=== PATIENT | male | born 1955 | race African-American/Black ===

== ENCOUNTER 2016-09-08 05:28 | Inpatient (IN) | payer OTHER ==
[~2016-09-08] VITALS: Ht 170.2 cm; Wt 68.0 kg
[~2016-09-08 05:28] MED LIST: Bisacodyl RC; Butalb/Acetaminophen/Caffeine PO; CLON0.1T14 PO; DOCU-270 PO; Docusate Sodium PO; FERR325T28 PO; HYDR-3326 PO; LEVO500T15 PO; PANT40TA2 PO; RIFA300C2 PO; RIVA10TA PO
[2016-09-08] MEDS ORDERED: KETOROLAC TROMETHAMINE INJ 30 MG/ML VIAL ONE (06:34)
[2016-09-08] MEDS ORDERED: BUPIVACAINE MPF 0.5% W/EPI INJ 30 ML VIAL ONE (06:34)
[2016-09-08] MEDS ORDERED: BACITRACIN 50000 UNITS/VIAL ONE (06:34)
[2016-09-08] MEDS ORDERED: TRANEXAMIC ACID 3,000 MG in SODIUM CHLORIDE IRRIG SOLUTION 70 ML IR ONE (07:00)
[2016-09-08] MEDS ORDERED: CEFAZOLIN SODIUM/DEXTROSE,ISO 50 ML IV ONE (07:44)
[2016-09-08] MEDS ORDERED: IV LR 1000 ML 1,000 ML ONE (07:45)
[2016-09-08] MEDS ORDERED: SECONDARY IV SET 1 EA INFUS.SET MC ONE ×2 (07:45→17:01)
[2016-09-08] MEDS ORDERED: IV SET PRIMARY 1 EA INFUS.SET MC ONE (07:45)
[2016-09-08] MEDS ORDERED: NEEDLELESS EST SET LARGE BORE 1 EA INFUS.SET MC ONE (07:45)
[2016-09-08] MEDS ORDERED: MORPHINE SULFATE/PF 10 MG/10ML (1MG/ML) AMPUL ONE (08:36)
[2016-09-08] MEDS ORDERED: MIDAZOLAM HCL 2 MG/2ML VIAL ONE ×2 (09:00)
[2016-09-08 10:50] VITALS: BP 113/70
--- NOTE | 2016-09-08 10:50 | NUR ---
HEAT SEALING MACHINE OPERATOR OPENING RECEIVED PATIENT FROM RECOVERY ROOM. S/P RIGHT TOTAL KNEE. PATIENT VS STABLE, NO SOB, DIFFICULTY BREATHING OR PAIN AT THIS TIME. PATIENT NO SENSATION OR MOVEMENT BILATERAL KNEE AND BELOW. SOME SENSATION BILATERALLY LOWER EXTREMITY ABOVE KNEES. PATIENT STATES NO NEEDS AT THIS TIME AND LEFT WITH CALL LIGHT IN REACH, BED LOWERED AND LOCKED, RAILS UPX3 FOR SAFETY WITH BED ALARM ON. CONTINUOUS PULSE O2 ORDERED FOR NOW VS MACHINE ATTACHED TO PATIENT. SALBADOR ORTA ATTACHING TELE MONITORING
--- NOTE | 2016-09-08 10:55 | NUR ---
HARVEST CREW SUPERVISOR NOTES WARM BLANKETS ON PATIENT, HEATED BAGS UNDER ARMS AND GROIN, ROOM WARMED. WILL MONITOR PATIENT. TELE SINUS JENNIFER
[2016-09-08 11:00] VITALS: BP_SYST 112; BP_SYST 113; BP_DIAS 62; BP_DIAS 70
--- NOTE | 2016-09-08 11:05 | NUR ---
CLOTH PRINTING INSPECTOR NOTES PATIENT DENIES CHILLS. IS COOL TO TOUCH. NO DIAPHORESIS. NO COMPLAINTS. MD AWARE OF ADMISSION AND OF LOW TEMP.
[2016-09-08 11:15] VITALS: BP 113/72
[2016-09-08 11:30] VITALS: BP 110/68
[2016-09-08] MEDS ORDERED: HYDROMORPHONE 1 MG/1 ML DISP.SYRIN IV PRN (11:30)
[2016-09-08] MEDS ORDERED: TYLENOL 650 MG TABLET PO PRN (11:30)
[2016-09-08] MEDS ORDERED: SENOKOT 8.6 MG TABLET PO PRN (11:30)
[2016-09-08] MEDS ORDERED: COLACE 250 MG CAPSULE PO PRN (11:30)
[2016-09-08] MEDS ORDERED: AMBIEN 5 MG TABLET PO PRN (11:30)
[2016-09-08] MEDS ORDERED: DULCOLAX 10 MG/SUPP.RECT RC PRN (11:30)
[2016-09-08] MEDS ORDERED: HYDROCODONE/APAP 5/325MG 1 EACH TABLET PO PRN ×3 (11:30→15:30)
[2016-09-08] MEDS ORDERED: IV SET PRIMARY PUMP SET 1 EA INFUS.SET MC ONE (11:58)
[2016-09-08] MEDS: IV LR 1000 ML 1,000 ML IV PRN ×2 (12:07→17:12)
[2016-09-08] MEDS ORDERED: MAG HYDROX/AL HYDROX/SIMETH 30 ML UDC PO PRN ×2 (15:30→16:00)
[2016-09-08] MEDS ORDERED: Z GUARD REMEDY 2 OZ OINT TP PRN (15:30)
[2016-09-08] MEDS ORDERED: MAGNESIUM HYDROXIDE 30 ML UDC PO PRN (15:30)
[2016-09-08] MEDS ORDERED: ZOLPIDEM TARTRATE 5 MG TABLET PO PRN (15:30)
[2016-09-08] MEDS ORDERED: ACETAMINOPHEN 325 MG TABLET PO PRN (15:30)
[2016-09-08] MEDS ORDERED: ONDANSETRON HCL/PF 4 MG/2 ML VIAL IVP PRN (15:30)
[2016-09-08 16:00] VITALS: BP 102/69
[2016-09-08] MEDS ORDERED: ONDANSETRON HCL/PF 4 MG/2 ML VIAL IV PRN (16:00)
[2016-09-08] MEDS ORDERED: ZOLPIDEM TARTRATE 10 MG TABLET PO PRN (16:00)
[2016-09-08] MEDS ORDERED: NA PHOS,M-B/NA PHOS,DI-BA 1 EA ENEMA RC PRN (16:00)
[2016-09-08] MEDS ORDERED: MAGNESIUM CITRATE 296 ML BOTTLE PO PRN (16:00)
[2016-09-08] MEDS ORDERED: diphenhydrAMINE HCL 25 MG CAPSULE PO PRN (16:00)
[2016-09-08] MEDS ORDERED: CLONIDINE HCL 0.1 MG TABLET PO PRN (16:00)
[2016-09-08] MEDS ORDERED: BUTALB/APAP/CAFFEINE 1 EACH TABLET PO PRN (16:00)
[2016-09-08] MEDS: ANCEF 1 G in IV D5W 50 ML IV SCH (17:07)
[2016-09-08] MEDS: FERROUS SULFATE (325 MG) 325 MG/TAB TABLET PO SCH (17:07)
[2016-09-08] MEDS: DOCUSATE SODIUM 100 MG CAPSULE PO SCH (17:07)
[2016-09-08] MEDS ORDERED: HYDROCODONE/APAP 5/325MG 1 EACH TABLET PO SCH (17:30)
--- NOTE | 2016-09-08 18:56 | NUR ---
EDITOR PRODUCER CLOSING PATIENT STABLE NO PAIN, SOB, DIFFICULTY BREATHING. BRACE ON RIGHT LEG AND PULSES PRESENT ALL EXTREMITIES. PATIENT STATES NO NEEDS AT THIS TIME. FULL SENSATION AND MOVEMENT HAS RETURNED TO LOWER EXTREMITIES. PATIENT BED LOWERED AND LOCKED RAILS UPX3 FOR SAFETY AND WILL ENDORSE TO RN FOR ELIAS
--- NOTE | 2016-09-08 19:30 | NUR ---
NIGHT SHIFT NOTES ALERT AND ORIENTED, VERBALLY RESPONSIVE TO STIMULI. DENIES ANY PAIN WHEN ASKED. ON OXYGEN AT 2LPM VIA NC. NO SOB NOTED. LEFT WRIST IV ACCESS NOTED, INTACT AND PATENT WITH IVF INFUSING WELL AT 100CC/HR. NO S/S OF FLUID OVERLOAD. WITH HOPPER CATHETER, DWELLING WELL. RIGHT KNEE IMMOBILIZER NOTED. CLEAN AND DRY. WILL CONTINUE TO MONITOR.
[2016-09-08 20:00] VITALS: BP 93/53
[2016-09-08] MEDS: DRONABINOL (2.5 MG) 2.5 MG CAPSULE PO SCH (22:00)
[2016-09-08] MEDS: PANTOPRAZOLE 40 MG TABLET.DR PO SCH (22:00)
[2016-09-09] VITALS: BP 118/72
[2016-09-09] MEDS: ANCEF 1 G in IV D5W 50 ML IV SCH (00:30)
--- NOTE | 2016-09-09 06:23 | NUR ---
RN NOTES NO SIGNIFICANT CHANGES NOTED. NO SOB. ON ROOM AIR. DENIES ANY PAIN WHEN ASKED. RIGHT KNEE IMMOBILIZER IN PLACED. CLEAN AND DRY. WILL ENDORSE TO THE NEXT SHIFT.
[2016-09-09] MEDS: IV LR 1000 ML 1,000 ML IV PRN ×2 (06:31→21:11)
[2016-09-09 06:40] LABS: EOSINOPHILS % (AUTO) 0.1 % (0.0-6.0); HEMATOCRIT 31 % (39-51); HEMOGLOBIN 10.4 g/dL (13.5-17.5); LYMPHOCYTES # (AUTO) 0.5 /CMM (0.8-4.8); LYMPHOCYTES % (AUTO) 6.1 % (20.0-44.0); MEAN CORPUSCULAR HEMOGLOBIN 28 PG (26.0-33.0); MEAN CORPUSCULAR HGB CONC 33 g/dl (31.0-36.0); MEAN CORPUSCULAR VOLUME 85 fL (80-96); MONOCYTES # (AUTO) 0.9 /CMM (0.1-1.30); MONOCYTES % (AUTO) 10.5 % (2.0-12.0); NEUTROPHILS # (AUTO) 7.5 /CMM (1.8-8.9); NEUTROPHILS % (AUTO) 83.3 % (43.0-81.0); PLATELET COUNT (AUTO) 322 /CMM (150-450); RDW COEFFICIENT OF VARIATION 16.9 (11.5-15.0)
[2016-09-09 06:56] LABS: CALCIUM, SERUM 8.7 mg/dL (8.5-10.1); CREATININE 1.2 mg/dL (0.6-1.3); MAGNESIUM 1.5 mg/dL (1.8-2.4); PHOSPHORUS 3.4 mg/dL (2.5-4.9); POTASSIUM 4.3 mmol/L (3.5-5.1)
[2016-09-09 07:30] VITALS: BP 107/67
[2016-09-09 08:00] VITALS: BP 101/66
--- NOTE | 2016-09-09 08:00 | NUR ---
RN NOTES ALERT & ORIENTED X3; R KNEE DRSG CDI; R KNEE IMMOBILIZER IN PLACE; POSTIVE CMS TO RLE; SCDS TO BLE; STATES NO PAIN AT THIS TIME; WILL CONTINUE TO MONITOR.
[2016-09-09] MEDS: ASPIRIN 325 MG TABLET PO SCH (08:44)
[2016-09-09] MEDS: DOCUSATE SODIUM 100 MG CAPSULE PO SCH ×2 (08:44→16:21)
[2016-09-09] MEDS: FERROUS SULFATE (325 MG) 325 MG/TAB TABLET PO SCH ×2 (08:44→16:21)
[2016-09-09] MEDS ORDERED: SECONDARY IV SET 1 EA INFUS.SET MC ONE (11:56)
--- NOTE | 2016-09-09 12:00 | NUR ---
RN NOTES norco 1tab po given per MD request; R knee with mario wrap cdi; R knee immobilizer in place; positive CMS to RLE; F/C discontinued, patient tolerated procedure; urinal provided; instructed to imelda for assistance when ready to void; patient turning & repositioned in bed independently; will continue to monitor.
[2016-09-09] MEDS: Magnesium 1GM/D5W 100ML PREMIX 100 ML IV SCH ×2 (12:01→13:23)
[2016-09-09] MEDS: HYDROCODONE/APAP 10/325MG 1 EA TABLET PO PRN (12:05)
[2016-09-09 16:00] VITALS: BP 114/73
[2016-09-09] MEDS: HYDROMORPHONE 1 MG/1 ML DISP.SYRIN SQ PRN ×2 (16:34→21:14)
--- NOTE | 2016-09-09 16:40 | NUR ---
RN NOTES C/o RLE pain 8 out of 10; dilaudid 1mg iv given per patient request; postive CMS to RLE; R knee mario wrap cdi; SCDs to BLE; will monitor for pain relief.
--- NOTE | 2016-09-09 18:00 | NUR ---
RN NOTES laying in bed; R knee with mario wrap drsg cdi; R knee immobilizer in place; SCDs to BLE; positive CMS to RLE; states pain to RLE 4 out of 10 & tolerable; will inform PM nurse.
--- NOTE | 2016-09-09 19:30 | NUR ---
RN NOTES: -RECEIVED AWAKE LYING ON BED COMFORTABLY,ALERT AND COHERENT , NO PAIN AND DISCOMFORT NOTED AT THIS TIME,ON BLE SCD,USING URINAL AND CALLING FOR ASSISTANCE WHEN GOING TO THE BATHROOM,PATIENT IS COOPERATIVE,ON KNEE IMMOBILIZER ON AT ALL TIMES,IV SITE ON THE RFA G#22 INTACT WITH IVF OF LR AT 100CC/HR ONGOING,LEFT KNEE DRESSING INTACT, FALL SAFETY AND ASPIRATION PRECAUTION OBSERCVED, CALL LIGHT WITHIN REACH.
[2016-09-09 20:00] VITALS: BP 138/91
--- NOTE | 2016-09-09 20:12 | NUR ---
RN NOTES; PATIENT ASSISTED TO COMMODE, ABLE TO MOVE BOWEL IN MODERATE AMOUNT, HE CLAIMED HE FEEL MUCH BETTER AFTER PASSING GAS.CALL LIGHT WITHIN REACH.
[2016-09-09 20:34] VITALS: BP 138/91
[2016-09-09] MEDS: DRONABINOL (2.5 MG) 2.5 MG CAPSULE PO SCH (21:10)
[2016-09-09] MEDS: PANTOPRAZOLE 40 MG TABLET.DR PO SCH (21:11)
--- NOTE | 2016-09-09 21:24 | NUR ---
RN NOTES: IVF ON LR NEW BOTTLE STARTED, PATIENT COMPLAINED OF PAIN 10/10 ON THE RIGHT KNEE POST OP SITE,PAIN MEDICATION GIVEN, NON PHARAMCOLOGIC INTERVENTION RENDERED, DIM LIGHT THE ROOM, CALL LIGHT WITHIN REACH.
--- NOTE | 2016-09-09 22:58 | NUR ---
RN NOTES: USING URINAL,ABLE TO SLEEP AND REST,KEEP ON MONITORING.
[2016-09-10] MEDS: HYDROMORPHONE 1 MG/1 ML DISP.SYRIN SQ PRN ×2 (04:51→09:42)
--- NOTE | 2016-09-10 04:51 | NUR ---
RN NOTES: ABLE TO SLEEP IN THE NIGHT, UPON HE WAKE UP AND GET UP TO PASS URINE HE FELT PAIN AGAIN ON HIS OPERATIVE SITE: LEFT KNEE 02/22, HE REQUEST FOR PAIN MEDICATION, BP-158/97 MD-91.KEPT COMFORTABLE IN BED.
[2016-09-10 06:54] LABS: BASOPHILS % (AUTO) 0.4 % (0.0-2.0); EOSINOPHILS % (AUTO) 0.4 % (0.0-6.0); HEMATOCRIT 33 % (39-51); HEMOGLOBIN 11.1 g/dL (13.5-17.5); LYMPHOCYTES # (AUTO) 0.6 /CMM (0.8-4.8); LYMPHOCYTES % (AUTO) 6.8 % (20.0-44.0); MEAN CORPUSCULAR HEMOGLOBIN 28 PG (26.0-33.0); MEAN CORPUSCULAR HGB CONC 34 g/dl (31.0-36.0); MEAN CORPUSCULAR VOLUME 84 fL (80-96); MONOCYTES # (AUTO) 0.8 /CMM (0.1-1.30); NEUTROPHILS # (AUTO) 6.7 /CMM (1.8-8.9); NEUTROPHILS % (AUTO) 82.4 % (43.0-81.0); PLATELET COUNT (AUTO) 329 /CMM (150-450); RDW COEFFICIENT OF VARIATION 16.8 (11.5-15.0); RED BLOOD CELL COUNT(AUTO) 3.93 MIL/uL (4.5-6.0); WHITE BLOOD COUNT (AUTO) 8.1 K/uL (4.3-11.0)
--- NOTE | 2016-09-10 07:06 | NUR ---
RN NOTES: AFTER PAIN MEDICATION GIVEN PATIENT WAS ABLE TO REST AND SLEEP, CALL LIGHT WITHIN REACH,CALLS AND NEEDS ATTENDED, BED LOW AND LOCKED, ENDORSED FOR CONTINUITY OF CARE.
[2016-09-10 07:13] LABS: CALCIUM, SERUM 8.5 mg/dL (8.5-10.1); CREATININE 1.1 mg/dL (0.6-1.3); MAGNESIUM 1.6 mg/dL (1.8-2.4); POTASSIUM 3.8 mmol/L (3.5-5.1)
[2016-09-10 08:00] VITALS: BP 158/90
[2016-09-10] MEDS: DOCUSATE SODIUM 100 MG CAPSULE PO SCH (09:41)
[2016-09-10] MEDS: ASPIRIN 325 MG TABLET PO SCH (09:41)
[2016-09-10] MEDS: FERROUS SULFATE (325 MG) 325 MG/TAB TABLET PO SCH (09:41)
[2016-09-10] MEDS ORDERED: SECONDARY IV SET 1 EA INFUS.SET MC ONE (09:46)
[2016-09-10] MEDS: Magnesium 1GM/D5W 100ML PREMIX 100 ML IV SCH ×2 (09:58→10:00)
[2016-09-10] MEDS ORDERED: IV LR 1000 ML 1,000 ML ONE (13:24)
[2016-09-10] MEDS: IV LR 1000 ML 1,000 ML IV PRN ×2 (13:29→13:42)
[2016-09-10 16:26] VITALS: BP 168/108
[2016-09-10] MEDS: HYDROCODONE/APAP 10/325MG 1 EA TABLET PO PRN (16:33)
== END 2016-09-10 16:50 | DRG 470 ==
LOC: DS 05:28 → MED 10:32 → TELE 10:54 → MED 16:41 → TELE 16:55 → MED 09-09 10:46
PROVIDERS: ADMIT Specialist; ATTEND Specialist
PROC: 0SRC0J9 Replacement of Right Knee Joint with Synthetic Substitute, Cemented, Open Approach (ICD-10-PCS; principal; 2016-09-08 10:00)
DX: M17.11 Unilateral primary osteoarthritis, right knee (principal); K21.9 Gastro-esophageal reflux disease without esophagitis; D64.9 Anemia, unspecified; E83.42 Hypomagnesemia; Z96.649 Presence of unspecified artificial hip joint; R79.89 Other specified abnormal findings of blood chemistry
CPT/HCPCS: 36415; 71010-TC; 80048-TC; 80061-TC; 83735-TC; 84100-TC; 85025-TC; 86850-TC; 86921-TC; 87081-TC; 88305-TC; 88311-TC; 94799-TC; 97001-TC; 97110-TC; 97116-TC; 97530-TC; A4217; A4606; A6402; C1713; J0690; J1100; J1170; J1885; J2001; J2250; J2274; J2704; J3475; J3490; J7060; J7120; L1830; Q0167; Z7610

== ENCOUNTER 2017-03-23 07:16 | Inpatient (IN) | payer OTHER ==
[~2017-03-23] VITALS: Ht 170.2 cm; Wt 70.8 kg
[~2017-03-23 07:16] MED LIST changes: -Bisacodyl RC; -Butalb/Acetaminophen/Caffeine PO; -CLON0.1T14 PO; -DOCU-270 PO; -Docusate Sodium PO; -LEVO500T15 PO; -RIFA300C2 PO
[2017-03-23] MEDS ORDERED: CEFAZOLIN SODIUM/DEXTROSE,ISO 50 ML IV ONE (07:36)
[2017-03-23] MEDS ORDERED: CELECOXIB 100 MG CAPSULE ONE ×2 (07:41→08:05)
[2017-03-23] MEDS ORDERED: ACETAMINOPHEN 325 MG TABLET ONE ×2 (07:41→08:05)
[2017-03-23] MEDS ORDERED: oxyCODONE HCL SR 10MG TAB.SR.12H PO ONE ×2 (07:41→08:05)
[2017-03-23] MEDS ORDERED: SEVOFLURANE 250 ML BOTTLE IH ONE (09:22)
[2017-03-23] MEDS ORDERED: HYDROMORPHONE INJ 2 MG/ML DISP.SYRIN ONE (09:23)
[2017-03-23] MEDS ORDERED: TRANEXAMIC ACID 3,000 MG in SODIUM CHLORIDE IRRIG SOLUTION 70 ML IR ONE (10:00)
[2017-03-23] MEDS ORDERED: SUCCINYLCHOLINE CHLORIDE 20 MG/ML VIAL ONE (11:14)
[2017-03-23] MEDS ORDERED: hydrALAZINE HCL IV 20 MG VIAL ONE (11:20)
[2017-03-23 11:55] VITALS: BP 122/78
--- NOTE | 2017-03-23 11:55 | NUR ---
MS RN ADMITTING NOTE RECEIVED SBAR REPORT FROM THE DRY HEAT CABINET ATTENDANT AT THE BEDSIDE. PATIENT IS BACK FROM THE SURGERY. A/O X4, AWAKE, COOPERATIVE. DENIES PAIN/DISCOMFORT AT THIS TIME. CONTINENT. URINAL PROVIDED. SPO2 99% ON 2L VIA NC. VS WNL. NO SOB. CHEST RISING EQUALLY BILATERALLY. L/KNEE ELEVATED. ICE APPLIED PER ORDER. PATIENT IS IN BED. BED IS LOCKED IN THE LOWEST POSITION. SIDE RAILS UP X2. CALL LIGHT WITHIN REACH. PATIENT EDUCATED TO USE THE CALL LIGHT TO CALL FOR ASSISTANCE. WILL CONTINUE TO MONITOR/ASSESS THE PATIENT THROUGHOUT THE SHIFT.
[2017-03-23] MEDS ORDERED: HYDROCODONE/APAP 5/325MG 1 EACH TABLET PO PRN ×2 (12:00)
[2017-03-23] MEDS ORDERED: HYDROMORPHONE 1 MG/1 ML DISP.SYRIN IV PRN (12:00)
[2017-03-23] MEDS ORDERED: BISACODYL SUPP (10 MG) 10 MG/SUPP.RECT SUPP.RECT RC PRN (12:30)
[2017-03-23] MEDS ORDERED: ACETAMINOPHEN 325 MG TABLET PO PRN (12:30)
[2017-03-23] MEDS ORDERED: DOCUSATE SODIUM 250 MG CAPSULE PO PRN (12:30)
[2017-03-23] MEDS ORDERED: ZOLPIDEM TARTRATE 5 MG TABLET PO PRN (12:30)
[2017-03-23] MEDS ORDERED: SENNOSIDES 8.6 MG TABLET PO PRN (12:30)
[2017-03-23] MEDS ORDERED: MAG HYDROX/AL HYDROX/SIMETH 30 ML UDC PO PRN (12:47)
[2017-03-23] MEDS ORDERED: ONDANSETRON HCL/PF 4 MG/2 ML VIAL IV PRN (12:47)
[2017-03-23] MEDS ORDERED: HYDROCODONE/APAP 10/325MG 1 EA TABLET PO PRN (12:47)
[2017-03-23] MEDS ORDERED: ZOLPIDEM TARTRATE 10 MG TABLET PO PRN (12:47)
[2017-03-23] MEDS ORDERED: NA PHOS,M-B/NA PHOS,DI-BA 1 EA ENEMA RC PRN (12:47)
[2017-03-23] MEDS ORDERED: BUTALB/APAP/CAFFEINE 1 EACH TABLET PO PRN (12:47)
[2017-03-23] MEDS ORDERED: DOCUSATE SODIUM 100 MG CAPSULE PO SCH (12:47)
[2017-03-23] MEDS ORDERED: diphenhydrAMINE HCL 25 MG CAPSULE PO PRN (12:47)
[2017-03-23] MEDS ORDERED: CLONIDINE HCL 0.1 MG TABLET PO PRN (12:47)
[2017-03-23] MEDS ORDERED: MAGNESIUM CITRATE 296 ML BOTTLE PO PRN (12:47)
--- NOTE | 2017-03-23 15:15 | NUR ---
FRAME NAILER NOTE CAME TO ADMINISTER ANCEF. PATIENT AMBULATION WITH THE PT. WILL COME BACK LATER. Addendum: 03/23/17 at 1626 by CARROLL REBOLLEDO RN MS COLLINS NOTE
[2017-03-23] MEDS: ANCEF 1 GM/50 ML D5W IV SCH ×4 (16:27→22:35)
[2017-03-23] MEDS: IV LR 1000 ML 1,000 ML IV PRN (18:06)
--- NOTE | 2017-03-23 19:30 | NUR ---
MS RN CLOSING NOTE GAVE SBAR REPORTTO ADMINISTRATIVE OFFICER AT THE AT THE BEDSIDE. PATIENT IS . A/O X4, AWAKE, COOPERATIVE. DENIES PAIN/DISCOMFORT AT THIS TIME. CONTINENT. URINAL PROVIDED. SPO2 99% ON 2L VIA NC. VS WNL. NO SOB. CHEST RISING EQUALLY BILATERALLY. L/KNEE ELEVATED. CPM MACHINE IS ON PRESCRIBED. PATIENT IS IN BED. BED IS LOCKED IN THE LOWEST POSITION. SIDE RAILS UP X2. CALL LIGHT WITHIN REACH. PATIENT EDUCATED TO USE THE CALL LIGHT TO CALL FOR ASSISTANCE. ENDORSED TO ADMINISTRATIVE OFFICER FOR ELIAS.
[2017-03-23 20:00] VITALS: BP 135/73
--- NOTE | 2017-03-23 20:00 | NUR ---
ms/rn opening notes PATIENT IN BED, AWAKE, ALERTX2 COOPERATIVE TO CARE. REQUIRE IN INSERTION. ON CPAP MACHINE, REMOVED AT 1999. DVT PUMP WAS PLACED ON. RESPIRATIONS EVEN AND UNLABORED. NO PAIN VERBALIZED OR OBSERVED, CALL LIGHTS WITHIN REACH, BED IN LOCK POSITION.
[2017-03-23] MEDS: PANTOPRAZOLE 40 MG TABLET.DR PO SCH (21:11)
[2017-03-23] MEDS: DRONABINOL (2.5 MG) 2.5 MG CAPSULE PO SCH (21:11)
[2017-03-24] MEDS ORDERED: ACETAMINOPHEN 325 MG TABLET ONE (04:06)
[2017-03-24] MEDS: IV LR 1000 ML 1,000 ML IV PRN ×2 (05:37→17:12)
--- NOTE | 2017-03-24 06:38 | NUR ---
304-1 MS/RN CLOSING NOTES PATIENT ABLE TO SLEEP DURING THE NIGHT, AMBIEN PRN FOR SLEEP GIVEN, PAIN MGMT MONITORING. CPM REMOVED AND DVT PUMP ON. IV SITE ON LEFT HAND PATENT W/ NO S/S OF INFILTRATION.PROVIDED INSTRUCTION TO USE CALL LIGHTS FOR ASSISTANCE. CALL LIGHTS WITHIN REACH. BED IN LOCK POSITION.
--- NOTE | 2017-03-24 07:35 | NUR ---
MS RN OPENING NOTE PATIENT IS ALERT AND ORIENTED x4. NO PAIN AT THIS TIME. NO SOB OR DISTRESS NOTED. CALL LIGHT WITHIN REACH. SAFETY MEASURES IMPLEMENTED. ABLE TO COMMUNICATE NEEDS. CPM OFF AT THIS TIME. CONTINENT/USES URINAL. ABLE TO AMBULATE WITH ASSISTANCE AND WALKER. LEFT LEG BANDAGE IN PLACE. KEPT CLEAN CRY AND INTACT. PER PATIENT HE WOULD LIKE TO GO HOME OR REHAB HE HAS ALL DURABLE MEDICAL EQUIPMENT AT HOME. LEFT HAND IV INTACT AND PATENT NO REDNESS OR SWELLING NOTED. IV FLUIDS RUNNING AT THIS TIME -LR @100 ML/HR TOLERATING WELL. REGULAR DIET. WILL CONTINUE TO MONITOR PATIENT.
[2017-03-24 08:00] VITALS: BP 121/83
[2017-03-24] MEDS: FERROUS SULFATE (325 MG) 325 MG/TAB TABLET PO SCH ×2 (08:21→17:04)
[2017-03-24] MEDS: ASPIRIN 325 MG TABLET PO SCH (08:21)
[2017-03-24] MEDS: DOCUSATE SODIUM 100 MG CAPSULE PO SCH ×2 (08:21→17:04)
[2017-03-24 16:00] VITALS: BP 135/82
[2017-03-24] MEDS: HYDROMORPHONE 1 MG/1 ML DISP.SYRIN SQ PRN ×2 (17:04→20:57)
--- NOTE | 2017-03-24 18:34 | NUR ---
MS RN CLOSING NOTE PATIENT IS ALERT AND ORIENTED x4. NO PAIN AT THIS TIME. NO SOB OR DISTRESS NOTED. CALL LIGHT WITHIN REACH. SAFETY MEASURES IMPLEMENTED. ABLE TO COMMUNICATE NEEDS. PARTICIPATED IN PHYSICAL THERAPY TODAY. ALL DUE MEDICATIONS GIVEN ORDERED. ALL NURSING CARE NEEDS ATTENDED TO. IV ON LEFT HAND INTACT AND PATENT NO REDNESS OR SWELLING NOTED. IV FLUIDS RUNNING AT 100 ML/HR TOLERATING WELL. AMBULATORY WITH WALKER. USES URINAL AT BEDSIDE. WILL ENDORSE TO CONCRETE VIBRATOR OPERATOR FOR ELIAS
[2017-03-24 20:00] VITALS: BP 107/63
[2017-03-24] MEDS: PANTOPRAZOLE 40 MG TABLET.DR PO SCH (21:59)
[2017-03-24] MEDS: DRONABINOL (2.5 MG) 2.5 MG CAPSULE PO SCH (21:59)
[2017-03-25] MEDS: HYDROMORPHONE 1 MG/1 ML DISP.SYRIN SQ PRN ×2 (04:53→11:23)
--- NOTE | 2017-03-25 06:22 | NUR ---
MS RN NOTES AWAKE & RESPONSIVE. NOT IN ANY DISTRESS. NO SOB NOTED. DENIES ANY PAIN OR DISCOMFORT AT THIS TIME. AM CARE DONE. MONITORED ACCORDINGLY. CALL LIGHT WITHIN REACH. BED IN LOWEST POSITION. SR UP X 2 FOR SAFETY WITH BED ALARM ON. WILL ENDORSE TO NEXT SHIFT.
--- NOTE | 2017-03-25 07:31 | NUR ---
RN OPENING NOTES RECEIVED PATIENT RESTING COMFORTABLY IN BED WITH EYES CLOSED. EASILY AROUSABLE. AOX4. PATIENT DENIES ANY PAIN. DENIES SOB OR CP. RESPIRATIONS EVEN AND UNLABORED. NO ACUTE DISTRESS NOTED. IV ACCESS IN THE LEFT HAND APPEARS INFILTRATED. CPM MACHINE AT THE BED SIDE. PATIENT WEARING IMMOBILIZER. WALKER AT THE BEDSIDE. BED LOCKED IN THE LOWEST POSITION WITH SIDERAILS UP X2. WILL CONTINUE TO MONITOR, ASSESS AND EDUCATE PATIENT THROUGHOUT SHIFT.
[2017-03-25 08:00] VITALS: BP 115/74
[2017-03-25] MEDS: FERROUS SULFATE (325 MG) 325 MG/TAB TABLET PO SCH (09:02)
[2017-03-25] MEDS: ASPIRIN 325 MG TABLET PO SCH (09:02)
[2017-03-25] MEDS: DOCUSATE SODIUM 100 MG CAPSULE PO SCH (09:02)
[2017-03-25 09:44] LABS: BASOPHILS % (AUTO) 0.4 % (0.0-2.0); EOSINOPHILS # (AUTO) 0.1 /CMM (0.0-0.7); EOSINOPHILS % (AUTO) 2.1 % (0.0-6.0); HEMATOCRIT 32 % (39-51); HEMOGLOBIN 10.9 g/dL (13.5-17.5); LYMPHOCYTES # (AUTO) 1.2 /CMM (0.8-4.8); LYMPHOCYTES % (AUTO) 17.8 % (20.0-44.0); MEAN CORPUSCULAR HEMOGLOBIN 29 PG (26.0-33.0); MEAN CORPUSCULAR HGB CONC 34 g/dl (31.0-36.0); MEAN CORPUSCULAR VOLUME 85 fL (80-96); MONOCYTES # (AUTO) 0.6 /CMM (0.1-1.30); MONOCYTES % (AUTO) 8.1 % (2.0-12.0); NEUTROPHILS # (AUTO) 4.9 /CMM (1.8-8.9); NEUTROPHILS % (AUTO) 71.6 % (43.0-81.0); PLATELET COUNT (AUTO) 294 /CMM (150-450); RDW COEFFICIENT OF VARIATION 16.6 (11.5-15.0); RED BLOOD CELL COUNT(AUTO) 3.82 MIL/uL (4.5-6.0); WHITE BLOOD COUNT (AUTO) 6.8 K/uL (4.3-11.0)
[2017-03-25 09:53] LABS: CALCIUM, SERUM 9.1 mg/dL (8.5-10.1); CREATININE 1.2 mg/dL (0.6-1.3); POTASSIUM 3.2 mmol/L (3.5-5.1)
[2017-03-25] MEDS ORDERED: POTASSIUM CHLORIDE 20 MEQ TAB.PRT.SR PO ONE (11:00)
[2017-03-25] MEDS ORDERED: ACETAMINOPHEN PO (11:07)
[2017-03-25] MEDS ORDERED: BUTALBITAL PO (11:07)
[2017-03-25] MEDS ORDERED: CAFFEINE PO (11:07)
[2017-03-25] MEDS ORDERED: CLON0.1T14 PO (11:07)
[2017-03-25 13:00] VITALS: BP 120/70
--- NOTE | 2017-03-25 13:00 | NUR ---
RN CLOSING NOTES PATIENT DISCHARGED TO [facility]. PATIENT DISCHARGED IN STABLE CONDITION. ALL DISCHARGE TEACHIGN COMPLETED ALL EXITCARE PROVIDED. NO ACUTE DISTRESS. RESPIRATION EVEN AND UNLABORED. NEW PRESCRIPTION EDUCATION GIVEN. VS WNL. DRESSING INTACT. TO BE CHANGED BY PA.
== END 2017-03-25 13:21 | DRG 470 ==
LOC: DS 07:16 → MED 10:29
PROVIDERS: ADMIT Internal Medicine; ATTEND Internal Medicine
PROC: 0SRD0J9 Replacement of Left Knee Joint with Synthetic Substitute, Cemented, Open Approach (ICD-10-PCS; principal; 2017-03-23 11:40)
DX: T84.84XA Pain due to internal orthopedic prosthetic devices, implants and grafts, initial encounter (principal); D64.9 Anemia, unspecified; E87.6 Hypokalemia; K21.9 Gastro-esophageal reflux disease without esophagitis; M19.90 Unspecified osteoarthritis, unspecified site; Z96.643 Presence of artificial hip joint, bilateral; M24.662 Ankylosis, left knee; Y92.009 Unspecified place in unspecified non-institutional (private) residence as the place of occurrence of the external cause; Y83.1 Surgical operation with implant of artificial internal device as the cause of abnormal reaction of the patient, or of later complication, without mention of misadventure at the time of the procedure
CPT/HCPCS: 36415; 80048-TC; 85025-TC; 86850-TC; 86921-TC; 87081-TC; 88300-TC; 97110-TC; 97116-TC; 97530-TC; A4217; A6402; C1713; J0330; J0360; J0690; J1100; J1170; J2405; J2704; J3490; J7030; J7060; J7120; L1830; Q0167